=== PATIENT | male | born 1995 | race Two or more races ===

== ENCOUNTER 2017-04-27 10:08 | Emergency (ER) | payer OTHER ==
[2017-04-27 10:13] VITALS: BP 101/79; PULSE 115; TEMP 98.3; BMI 21.4
--- NOTE | 2017-04-27 11:06 | PDOC ---
History of Present Illness - General Chief Complaint: Cold Symptoms Stated Complaint: CHEST PAIN Time Seen by Provider: 04/27/17 10:35 History Source: Patient Exam Limitations: No Limitations - History of Present Illness Initial Comments: 04/27/17 10:55 Patient is a [21 y/o male, denies any significant medical history currently on no medication presents for cough, stuffy nose, circular pruritic rash to right inner thigh. Denies any urinary complaints, denies any penile discharge, denies fever, reports chest pain with coughing 2 days ago which has resolved. Cough is nonproductive.] Past Medical History: [Denies]. Allergies: No known allergies Medications: [Denies] Family History: Non-contributory Social History: Denies smoking, alcohol use, or IVDU Review of Systems GENERAL/CONSTITUTIONAL: [No fever or chills. No weakness. No weight change.] HEAD, EYES, EARS, NOSE AND THROAT: [No change in vision. No ear pain or discharge. No sore throat. ] CARDIOVASCULAR: [No chest pain or shortness of breath.] RESPIRATORY: [No cough, wheezing, or hemoptysis.] GASTROINTESTINAL: [No nausea, vomiting, diarrhea or constipation. No rectal bleeding.] GENITOURINARY: [No dysuria, frequency, or change in urination.] MUSCULOSKELETAL: [No joint or muscle swelling or pain. No neck or back pain.] SKIN AND BREASTS: [No rash or easy bruising.] NEUROLOGIC: [No headache, vertigo, loss of consciousness, or loss of sensation.] PSYCHIATRIC: [No depression or anxiety.] ENDOCRINE: [No increased thirst. No abnormal weight change.] HEMATOLOGIC/LYMPHATIC: [No anemia, easy bleeding, or history of blood clots.] ALLERGIC/IMMUNOLOGIC: [No hives or skin allergy. No latex allergy.] Physical Exam: GENERAL: [The patient is awake, alert, and fully oriented, in no acute distress. ] EYES: [Pupils equal, round and reactive to light, extraocular movements intact, sclera anicteric, conjunctiva clear.] ENT: [Ears normal, nares patent, oropharynx clear without exudates. Moist mucous membranes. No uvula deviation] NECK: [Normal range of motion, supple without lymphadenopathy, JVD, or masses.] LUNGS: [Breath sounds equal, clear to auscultation bilaterally. No wheezes, and no crackles.] HEART: [Regular rate and rhythm, normal S1 and S2 without murmur, rub or gallop. ] ABDOMEN: [Soft, nontender, normoactive bowel sounds. No guarding, no rebound. No masses. No bruising or abrasions] MUSCULOSKELETAL: [Normal range of motion, no edema. No clubbing or cyanosis. No cords, erythema, or tenderness. No CVA Tenderness with fist.] NEUROLOGICAL: [Cranial nerves II through XII grossly intact. Normal speech, normal gait.] SKIN: Circular well-defined erythematous rash, pruritic to right inner thigh 2 measuring approximately 2 cm in width each lesion 04/27/17 11:18 Past History - Past Medical History Allergies/Adverse Reactions: Allergies Allergy/AdvReac Type Severity Reaction Status Date / Time No Known Allergies Allergy Verified 04/27/17 10:10 Home Medications: Ambulatory Orders Meclizine HCl [Antivert -] 12.5 mg PO TID PRN #60 tablet 11/18/15 Buspirone HCl [Buspar -] 10 mg PO BID #60 tablet 11/30/15 Clotrimazole 30 gm TP BID #1 cream..g. 04/27/17 Anemia: No Asthma: No Cancer: No Cardiac Disorders: No CVA: No COPD: No CHF: No Dementia: No Diabetes: No GI Disorders: No Disorders: No HTN: No Hypercholesterolemia: No Kidney Stones: No Seizures: Yes (at age 14 once,) Thyroid Disease: No - Surgical History Abdominal Surgery: No Appendectomy: No Cardiac Surgery: No Cholecystectomy: No Lung Surgery: No Neurologic Surgery: No Orthopedic Surgery: No - Reproductive History Testicular Surgery: No - Immunization History Immunization Up to Date: Yes - Suicide/Smoking/Psychosocial Hx Smoking Status: No Smoking History: Current every day smoker Have you smoked in the past 12 months: Yes Number of Cigarettes Smoked Daily: 10 Cigars Per Day: 0 Information on smoking cessation initiated: Yes 'Breaking Loose' booklet given: 11/09/15 Hx Alcohol Use: No Drug/Substance Use Hx: Yes Substance Use Type: Alcohol, Heroin, Marijuana, Tranquilizers Hx Substance Use Treatment: Yes (several detox/rehab. tx [facility], [facility], [facility] outpatient ) *Physical Exam - Vital Signs Last Vital Signs Temp Pulse Resp BP Pulse Ox 98.3 F 115 H 20 101/79 98 04/27/17 10:10 04/27/17 10:10 04/27/17 10:10 04/27/17 10:10 04/27/17 10:10 Medical Decision Making - Medical Decision Making 04/27/17 11:19 A/P: Patient with, cold-like symptoms and rash consistent with ringworm will give antifungal, follow-up with dermatology. Patient's lungs are clear, physical examination is benign, patient is afebrile. *DC/Admit/Observation/Transfer Diagnosis at time of Disposition: Common cold, Ringworm - Discharge Dispostion Disposition: HOME Condition at time of disposition: Stable Admit: No - Prescriptions Prescriptions: Clotrimazole 30 gm TP BID #1 cream..g. - Referrals Referrals: [facility] [Non Staff, Medical] - - Patient Instructions Printed Discharge Instructions: DI for Ringworm Additional Instructions: Recommend follow up with dermatology. If fever, increased cough or other concerns return to the ER. - Post Discharge Activity Forms/Work/School Notes: Back to Work
== END 2017-04-27 11:10 | disposition home or self-care (01) ==
LOC: JERFT 10:08
DX: J00 Acute nasopharyngitis [common cold] (principal); B35.9 Dermatophytosis, unspecified; F17.210 Nicotine dependence, cigarettes, uncomplicated
CPT/HCPCS: 99281-25

== ENCOUNTER 2018-03-30 13:02 | Day surgery (SDC) | payer OTHER ==
[2018-03-30 14:04] VITALS: BMI 19.1
[2018-03-30 16:06] VITALS: TEMP 98.4
[2018-03-30 16:39] VITALS: BP 107/58; PULSE 54
--- NOTE | 2018-04-03 15:18 | PATH ---
Surgical Pathology Report Patient Name: [facility]. Rec. #: [id number] /Age/Gender: 1995 (Age: 22) / M Account: [id number] Location: U-ENDOSCOPY Taken: 03/30/2018 Received: 04/02/2018 Reported: 04/03/2018 Physicians: Hernan Palacios D.O. Specimen(s) Received A: BX DUODENUM B: BX PYLORUS C: BX ANTRUM AND BODY Clinical History Abdominal pain Postoperative diagnosis: Gastritis Final Diagnosis A. DUODENUM, BIOPSY: DUODENAL MUCOSA WITH MILD ACUTE AND CHRONIC DUODENITIS. B. PYLORUS, BIOPSY: GASTRIC MUCOSA WITH MILD CHRONIC GASTRITIS. IMMUNOHISTOCHEMICAL STAIN FOR H. PYLORI IS NEGATIVE. C. STOMACH, ANTRUM AND BODY, BIOPSY: GASTRIC ANTRAL AND BODY MUCOSA WITH MILD CHRONIC GASTRITIS. IMMUNOHISTOCHEMICAL STAIN FOR H. PYLORI IS NEGATIVE. Electronically Signed Jolynn Machado M.D. Gross Description A. Received in formalin, labeled "duodenum" are 3 alt[place]ano, irregular portions of soft tissue ranging from 0.2-0.4 cm. in greatest dimension. The specimens are submitted in toto in one cassette. B. Received in formalin, labeled "pylorus" is a altamirano, irregular portion of soft tissue measuring 0.5 cm. in greatest dimension. The specimen is submitted in toto in one cassette. C. Received in formalin, labeled "antrum and body" are 2 altamirano, irregular portions of soft tissue averaging 0.4 cm. in greatest dimension. The specimens are submitted in toto in one cassette. 04/02/2018 [facility]04/02/2018
== END 2018-03-30 16:39 | disposition home or self-care (01) ==
LOC: JASU-ENDO 13:02
PROVIDERS: ATTEND Internal Medicine Gastroenterology
PROC: 0DB68ZX Excision of Stomach, Via Natural or Artificial Opening Endoscopic, Diagnostic (ICD-10-PCS; principal; 2018-03-30 14:15)
DX: K29.70 Gastritis, unspecified, without bleeding (principal)
CPT/HCPCS: 88305-TC; 88342-TC

== ENCOUNTER 2019-01-29 14:32 | Inpatient (IN) | payer OTHER ==
[2019-01-29 14:40] VITALS: BMI 21.5
--- NOTE | 2019-01-29 14:41 | PDOC ---
Rapid Medical Evaluation Chief Complaint: Pain Time Seen by Provider: 01/29/19 14:35 Medical Evaluation: Allergies Allergy/AdvReac Type Severity Reaction Status Date / Time No Known Allergies Allergy Verified 01/05/18 12:58 01/29/19 14:37 I have performed a brief in-person evaluation of this patient. The patient presents with a chief complaint of: h/o GERD and substance abuse present with complains of diarrhea, abdominal pains, nausea and vomiting. Denies alcohol use but report marijuana and h/o benzo abuse. Denies fever, chills Pertinent physical exam findings: A&O x 3 in NAD I have ordered the following: cbc, cmp, lipase The patient will proceed to the ED for further evaluation. Discharge Disposition - Diagnosis Gastroenteritis - Discharge Dispostion Condition at time of disposition: Stable - Referrals - Patient Instructions - Post Discharge Activity
--- NOTE | 2019-01-29 14:46 | PDOC ---
History of Present Illness <Curry Wyatt - Last Filed: 01/29/19 15:42> - General History Source: Patient - History of Present Illness Timing/Duration: reports: resolved prior to arrival <Henry Cardoza - Last Filed: 01/29/19 17:35> - General Chief Complaint: Pain Stated Complaint: ABN PAIN Time Seen by Provider: 01/29/19 14:35 Past History <Curry Wyatt - Last Filed: 01/29/19 15:42> - Past Medical History Anemia: No Asthma: No Cancer: No Cardiac Disorders: No CVA: No COPD: No CHF: No DVT: No Dementia: No Diabetes: No GI Disorders: No Disorders: No HTN: No Hypercholesterolemia: No Kidney Stones: No Seizures: Yes (withdrawl from drug at age 14 once,) Thyroid Disease: No - Surgical History Abdominal Surgery: No Appendectomy: No Cardiac Surgery: No Cholecystectomy: No Lung Surgery: No Neurologic Surgery: No Orthopedic Surgery: No - Reproductive History Testicular Surgery: No - Immunization History Immunization Up to Date: Yes - Psycho Social/Smoking Cessation Hx Smoking Status: No Smoking History: Current every day smoker Have you smoked in the past 12 months: Yes Number of Cigarettes Smoked Daily: 6 Cigars Per Day: 0 Information on smoking cessation initiated: No 'Breaking Loose' booklet given: 03/30/18 Hx Alcohol Use: No Drug/Substance Use Hx: No Substance Use Type: Alcohol, Heroin, Marijuana, Tranquilizers Hx Substance Use Treatment: Yes (several detox/rehab. tx [facility], [facility], [facility] outpatient ) <Henry Cardoza - Last Filed: 01/29/19 17:35> - Past Medical History Allergies/Adverse Reactions: Allergies Allergy/AdvReac Type Severity Reaction Status Date / Time No Known Allergies Allergy Verified 01/29/19 14:40 Home Medications: Ambulatory Orders Clonazepam 1 mg PO DAILY 03/30/18 Medical Marijuana IH PRN 03/30/18 Methadone [Dolophine -] 5 mg PO DAILY 03/30/18 Omeprazole 40 mg PO DAILY #1 capsule. 03/30/18 Abd/GI Specific PMHX - Complaint Specific PMHX Hepatitis: No Pancreatitis: No <Henry Cardoza - Last Filed: 01/29/19 17:35> Review of Systems - Review of Systems Constitutional: No: Chills, Fever Respiratory: No: Cough, Shortness of Breath Cardiac (ROS): Yes: Chest Pain. No: Lightheadedness, Palpitations, Syncope ABD/GI: Yes: Diarrhea, Nausea, Vomiting, Abdominal cramping. No: Blood Streaked Bowels, Constipated, Rectal Bleeding, Tarry Stools : No: Burning, Dysuria, Discharge, Flank Pain, Hematuria <Henry Cardoza - Last Filed: 01/29/19 17:35> *Physical Exam - Vital Signs Last Vital Signs Temp Pulse Resp BP Pulse Ox 98.0 F 118 H 18 135/72 100 01/29/19 14:35 01/29/19 14:35 01/29/19 14:35 01/29/19 14:35 01/29/19 14:35 <Curry Wyatt - Last Filed: 01/29/19 15:42> - Vital Signs Last Vital Signs Temp Pulse Resp BP Pulse Ox 98.0 F 118 H 18 135/72 100 01/29/19 14:35 01/29/19 14:35 01/29/19 14:35 01/29/19 14:35 01/29/19 14:35 - Physical Exam General Appearance: Yes: Appropriately Dressed. No: Apparent Distress HEENT: positive: Normal Voice Neck: positive: Supple Respiratory/Chest: positive: Lungs Clear, Normal Breath Sounds. negative: Respiratory Distress Cardiovascular: positive: Regular Rate, S1, S2 Gastrointestinal/Abdominal: positive: Normal Bowel Sounds, Soft. negative: Tender, Pulsatile Mass, Distended, Guarding, Rebound Musculoskeletal: negative: CVA Tenderness Integumentary: positive: Dry, Warm Neurologic: positive: Fully Oriented, Alert, Normal Mood/Affect <Henyr Cardoza - Last Filed: 01/29/19 17:35> Heart Score/ECG Review #1 ECG reviewed & interpreted by me at: 15:07 General ECG Interpretation: Sinus Rhythm, Normal Rate (82), Normal Intervals ( qtc 457, IRBBB qrs 96), No acute ischemic changes <Curry Wyatt - Last Filed: 01/29/19 15:42> ED Treatment Course - LABORATORY CBC & Chemistry Diagram: 01/29/19 14:10 01/29/19 14:10 - ADDITIONAL ORDERS Additional order review: Laboratory Results 01/29/19 14:10 Urine Color Yellow Urine Appearance Clear Urine pH 6.0 Ur Specific [place] 1.008 L Urine Protein Negative Urine Glucose (UA) Negative Urine Ketones Negative Urine Blood Negative Urine Nitrite Negative Urine Bilirubin Negative Urine Urobilinogen 0.2 Ur Leukocyte Esterase Negative 01/29/19 14:10 RBC 4.57 MCV 92.1 MCHC 33.8 RDW 12.7 MPV 7.3 L Neutrophils % 79.9 D Lymphocytes % 14.7 D Monocytes % 3.7 L Eosinophils % 1.3 Basophils % 0.4 <Curry Wyatt - Last Filed: 01/29/19 15:42> - LABORATORY CBC & Chemistry Diagram: 01/29/19 14:10 01/29/19 14:10 <Henry Cardoza - Last Filed: 01/29/19 17:35> Medical Decision Making - Medical Decision Making 01/29/19 14:45 23-year-old male history of polysubstance abuse, on methadone, s/p discharge several days ago after a 6-month inpatient rehab stay at [facility], here with multiple complaints. Patient states for the past 3 weeks has had intermittent chest pain/upper abd pain that comes on once a day and resolves with no exacerbating symptoms. Also reports several episodes of nausea, vomiting, diarrhea that has since resolved. States abd pain, in general, has since improved and currently asymptomatic. No SOB or diaphoresis. States since his discharge from long-term rehab several days ago, has only continued to do marijuana see exam Upper abd pain w/ n/v/d x 3 weeks Since resolved Asx currently S/p recent dc from lengthy in-pt rehab stay for polysubstance abuse Only reports continued cannibus now Tachy to 118 w/ clear chest/lungs and benign abd on exam -ekg/cxr/labs -anticipate dc home 01/29/19 16:28 Lipase over 1000! On reassessment, patient denies excessive alcohol use and states last alcohol intake was over 2 months ago. No history of gallstones. Pancreatitis possibly drug-induced as cannabis known to cause condition. Will get ultrasound and triglyceride level to exclude other cause. Of note U tox positive for cocaine benzo and marijuana. At present patient remains asymptomatic with benign abdomen. Per discussion with Dr. Wyatt, patient should be admitted 01/29/19 17:21 Pt informed of lab results. I explained to patient that based on lab work, his pancreas appears inflamed and that assuming there is no gallstones on his ultrasound and that triglyceride levels are normal, that condition is possibly due to his cannabis use. I explained to patient that we would like to admit him to rest his pancreas and give him IV fluids. Patient states he does not want to be admitted but will give it further thought and at least wait for his ultrasound report to come back. 01/29/19 17:31 Ultrasound neg for gallstones but shows borderline hepatosplenomegaly and fatty liver. Of note, triglyceride and alcohol level wnl. Unable to locate patient in ED. ER staff was told by another patient that patient was seen walking out of ER. No IV was in place <Henry Cardoza - Last Filed: 01/29/19 17:35> Discharge <Curry Wyatt - Last Filed: 01/29/19 15:42> - Discharge Information Problems reviewed: Yes <Henry Cardoza - Last Filed: 01/29/19 17:35> - Discharge Information Clinical Impression/Diagnosis: Abdominal pain Qualifiers: Abdominal location: upper abdomen, unspecified Qualified Code(s): R10.10 - Upper abdominal pain, unspecified Condition: Fair Disposition: ELOPED
[2019-01-29 15:12] LABS: BASO % 0.4 % (0-2.0); EOS % 1.3 % (0-4.5); HEMOGLOBIN 14.2 GM/dL (11.7-16.9); LYMPH % 14.7 % (8-40); MCH 31.1 pg (25.7-33.7); MCHC 33.8 g/dl (32.0-35.9); MEAN CELL VOLUME 92.1 fl (80-96); MEAN PLT VOLUME 7.3 fl (7.5-11.1); MONO % 3.7 % (3.8-10.2); NEUT % 79.9 % (42.8-82.8); PLATELET COUNT 188 K/MM3 (134-434); RBC 4.57 M/mm3 (4.00-5.60); RDW 12.7 % (11.9-15.9); WHITE BLOOD COUNT 7.5 K/mm3 (4.0-10.0)
[2019-01-29 15:34] LABS: URINE APPEARANCE CLEAR; URINE BILIRUBIN NEGATIVE (NEGATIVE); URINE COLOR YELLOW; URINE GLUCOSE (UA) NEGATIVE (NEGATIVE); URINE KETONE NEGATIVE (NEGATIVE); URINE LEUK ESTERASE NEGATIVE (NEGATIVE); URINE NITRITE NEGATIVE (NEGATIVE); URINE PROTEIN NEGATIVE (NEGATIVE); URINE UROBILINOGEN 0.2 mg/dL (0.2-1.0)
[2019-01-29 15:46] LABS: ALBUMIN 3.6 g/dl (3.4-5.0); ALK PHOS 67 U/L (45-117); ANION GAP 6 MMOL/L (8-16); BILIRUBIN,TOTAL 0.2 mg/dL (0.2-1); BLOOD UREA NITROGEN 9.3 mg/dL (7-18); CALCIUM 8.7 mg/dL (8.5-10.1); CHLORIDE 105 mmol/L (98-107); CO2 28 mmol/L (21-32); CREATININE 0.9 mg/dL (0.55-1.3); GLUCOSE,RANDOM 79 mg/dL (74-106); LIPASE 1006 U/L (73-393); POTASSIUM 4.5 mmol/L (3.5-5.1); SGOT/AST 16 U/L (15-37); SGPT/ALT 26 U/L (13-61); SODIUM 139 mmol/L (136-145); TOT PROT 7.3 g/dl (6.4-8.2)
[2019-01-29 16:03] LABS: OPIATES, URI NEGATIVE ng/ml (CUTOFF=300); PHENCYCLIDINE,URINE NEGATIVE ng/ml (CUTOFF=25); URINE AMPHETAMINES NEGATIVE ng/ml (CUTOFF=500); URINE BARBITURATES NEGATIVE ng/ml (CUTOFF=200)
[2019-01-29 16:22] LABS: COCAINE, UR POSITIVE ng/ml (CUTOFF=300); METHADONE, UR POSITIVE ng/ml (CUTOFF=300); URINE BENZODIAZEPINES POSITIVE ng/ml (CUTOFF=200)
[2019-01-29 17:14] LABS: TRIGLYCERIDES 71 mg/dL (0-150)
[2019-01-29] MEDS ORDERED: SODIUM CHLORIDE 1,000 ML IV STA (18:17)
--- NOTE | 2019-01-29 18:19 | PDOC ---
*Physical Exam - Vital Signs Last Vital Signs Temp Pulse Resp BP Pulse Ox 98.0 F 102 H 15 133/69 99 01/29/19 14:35 01/29/19 17:00 01/29/19 17:00 01/29/19 17:00 01/29/19 17:00 - Physical Exam General Appearance: Yes: Appropriately Dressed. No: Apparent Distress HEENT: positive: Normal Voice Neck: positive: Supple Respiratory/Chest: positive: Lungs Clear, Normal Breath Sounds. negative: Respiratory Distress Cardiovascular: positive: Regular Rate, S1, S2 Gastrointestinal/Abdominal: positive: Soft. negative: Tender Musculoskeletal: negative: CVA Tenderness Integumentary: positive: Dry, Warm Neurologic: positive: Fully Oriented, Alert, Normal Mood/Affect ED Treatment Course - LABORATORY CBC & Chemistry Diagram: 01/30/19 06:00 01/30/19 06:00 - ADDITIONAL ORDERS Additional order review: Laboratory Results 01/29/19 01/29/19 01/29/19 14:10 14:10 14:10 Sodium 139 Potassium 4.5 Chloride 105 Carbon Dioxide 28 Anion Gap 6 L BUN 9.3 Creatinine 0.9 Est GFR (CKD-EPI)AfAm 139.04 Est GFR (CKD-EPI)NonAf 119.96 Random Glucose 79 Calcium 8.7 Total Bilirubin 0.2 AST 16 ALT 26 Alkaline Phosphatase 67 Creatine Kinase 93 Troponin I < 0.02 Total Protein 7.3 Albumin 3.6 Triglycerides 71 Lipase 1006 H Urine Color Yellow Urine Appearance Clear Urine pH 6.0 Ur Specific [place] 1.008 L Urine Protein Negative Urine Glucose (UA) Negative Urine Ketones Negative Urine Blood Negative Urine Nitrite Negative Urine Bilirubin Negative Urine Urobilinogen 0.2 Ur Leukocyte Esterase Negative Opiates Screen Negative Methadone Screen Positive A* Barbiturate Screen Negative Phencyclidine Screen Negative Ur Amphetamines Screen Negative MDMA (Ecstasy) Screen Negative Benzodiazepines Screen Positive A* Cocaine Screen Positive A* U Marijuana (THC) Screen Positive A* Alcohol, Quantitative < 3 01/29/19 14:10 RBC 4.57 MCV 92.1 MCHC 33.8 RDW 12.7 MPV 7.3 L Neutrophils % 79.9 D Lymphocytes % 14.7 D Monocytes % 3.7 L Eosinophils % 1.3 Basophils % 0.4 - RADIOLOGY Radiology Studies Ordered: Category Date Time Status CHEST PA & LAT [RAD] Stat Radiology 01/29/19 14:49 Completed ABDOMEN US -LIMITED [US] Stat Ultrasound 01/29/19 15:52 Completed Medical Decision Making - Medical Decision Making 01/29/19 18:16 Patient reappeared in ED now and told staff that he went outside to smoke a cigarette and then went home to get clothes and belongings and now wants to be admitted. Pt well alex with strong scent of marijuana on his person. ER nurse and charge nurse made aware. Will continue evaluation at this time and arrange admission 01/29/19 18:29 Case discussed with admitting team who is requesting CT to rule out necrosis. States after CT, ER to contact team to admit 01/29/19 19:00 Pt signed out to night ALEX, pending CT and admission Discharge - Discharge Information Problems reviewed: Yes Clinical Impression/Diagnosis: Abdominal pain, Pancreatitis, Cannabis dependence, Polysubstance abuse Condition: Improved - Admission Yes - Follow up/Referral - Patient Discharge Instructions - Post Discharge Activity
[2019-01-29] MEDS ORDERED: ACETAMINOPHEN 1000 MG/100 ML VIAL (NON FORMULARY) IVPB ONE (18:52)
--- NOTE | 2019-01-29 19:11 | PN ---
Teaching Attending Note Name of Resident: Denny Toribio ATTENDING PHYSICIAN STATEMENT I saw and evaluated the patient. I reviewed the resident's note and discussed the case with the resident. I agree with the resident's findings and plan as documented. SUBJECTIVE: Patient is a 23 year old man with PMH of Tobacco use, Anxiety and Polysubstance abuse (on methadone), discharged several days ago after a 6-month inpatient rehab stay at [facility], presenting with 3 weeks of intermittent chest pain/ upper abdominal pain. Pain comes on once a day and resolves with no exacerbating symptoms. Also reports several episodes of nausea, vomiting, diarrhea that has since resolved. States abdominal pain, in general, has since improved and currently asymptomatic. Denies SOB, headache, fever, chills or diaphoresis. States since his discharge from long-term rehab several days ago, he has only continued to do marijuana. Denies alcohol use. No sick contacts or recent travel. OBJECTIVE: Alert Vital Signs Period Temp Pulse Resp BP Sys/Nuno Pulse Ox Last 24 Hr 98.0 F-98.2 F 102-118 15-20 102-135/58-72 98-100 HEENT: No Jaundice, eye redness or discharge, PERRLA, EOMI. Normocephalic, atraumatic. External ears are normal and hearing is grossly intact. No nasal discharge. Neck: Supple, nontender. No palpable adenopathy or thyromegaly. No JVD Chest: Good effort. Clear to auscultation and percussion. Heart: Regular. No S3, rub or murmur Abdomen: Not distended, soft, nontender and no HSM. No rebound or guarding. Normal bowel sounds. Ext: Peripheral pulses intact. No leg edema. Skin: Warm and dry. No petechiae, rash or ecchymosis. Neuro: Alert. Oriented x3. CN 2-12 grossly intact. Sensation grossly intact in all four extremities and DTR are symmetric. Psych: Appropriate mood and affect. Good insight. Home Medications Medication Instructions Recorded Methadone [Dolophine -] 140 mg PO DAILY 03/30/18 Buspirone HCl [Buspar -] 10 mg PO DAILY 01/29/19 Abnormal Lab Results 01/29/19 01/29/19 01/29/19 14:10 14:10 14:10 MPV 7.3 L Monocytes % 3.7 L Anion Gap 6 L Lipase 1006 H Ur Specific [place] Methadone Screen Positive A* Benzodiazepines Screen Positive A* Cocaine Screen Positive A* U Marijuana (THC) Screen Positive A* 01/29/19 14:10 MPV Monocytes % Anion Gap Lipase Ur Specific [place] 1.008 L Methadone Screen Benzodiazepines Screen Cocaine Screen U Marijuana (THC) Screen ASSESSMENT AND PLAN: 1. Pancreatitis - Most likely drug induced. Urine toxicology revealed cocaine, benzodiazepines, marijuana and methadone. Ultrasound was negative for gallstones , showed borderline hepatosplenomegaly and fatty liver but no pancreatic pathology. No evidence of pancreatitis on CT abdomen. Being treated with IV LR at 200 ml/hour and will use tylenol for pain control. Now painfree and eating crackers and walking around in the ER. Will monitor closely for drug withdrawal and do neurochecks. Implement seizure, fall and aspiration precautions. Monitor and replete electrolytes (Ca,Mg,K,P). EKG is pending. Counseled patient about abstaining from illicit drug use. Will consult legal specialist and refer to drug detox upon discharge. 2. Tobacco Use Counseled on risks associated with tobacco use. We will provide patient all the necessary assistance to facilitate smoking cessation and prescribe Nicotine patch. 3. DVT prophylaxis - Lovenox 40 mg SQ q 24 hours. 4. Advance directives - Full code
--- NOTE | 2019-01-29 19:47 | HP ---
CHIEF COMPLAINT: abd pain PCP: denies HISTORY OF PRESENT ILLNESS: This is a 23 y/o M with a polysubstance abuse hx s/ p d/c from detox at [facility] for benzos, cocaine, and heroin abuse who was brought in by his grandma after pt noticed one episoder of black stool and epigastric pain/chest pain this afternoon. Pt admits to 1/2 gram of cocaine injected during this episode and made the symptoms worse, as it was the largest amount he had ever taken at one time. Pt had experienced the epigastric pain for weeks but the cocaine use exacerbated it to a point where he needed medical attention. Pt was nauseous, lightheaded and had cp, dizzy during the cocaine use but denied it prior or once the effects wore off. Pt denied any cp, sob, fever, chills, sick contacts, bowel/bladder complaints, epigastric pain upon my encounter. He has mostly been eating crackers with butter because of the pain he had been experiencing. He reports the IV tylenol given in ED has improved his pain to a 0/10. Denies a hx of gall stones, ETOH, hyperlipidemia in his family, recent scorpion bite, trauma, medical procedures. ER course was notable for: (1)1g tylenol given, IV LR at 200cc/hr, UA tox + benzos, methadone, cocaine, marijuana (2)Lipase- 1001, CT abd pelvis w/o contrast- negative for acute pathology (3) US- hepatosplenomegaly with mild diffuse fatty liver Recent Travel: denies Social History: Smokin days/day X 7 yrs Alcohol: denies past or present Drugs: 1/2 gram of IV cocaine, (not prescribed at this time) klonopin 2mg daily , (not prescribed at this time) buspar 10mg BID, methadone 140 daily (not confirmed yet) Allergies No Known Allergies Allergy (Verified 01/29/19 14:40) HOME MEDICATIONS: Home Medications Medication Instructions Recorded Methadone [Dolophine -] 140 mg PO DAILY 03/30/18 Buspirone HCl [Buspar -] 10 mg PO DAILY 01/29/19 REVIEW OF SYSTEMS negative except in HPI PHYSICAL EXAMINATION Vital Signs - 24 hr 01/29/19 01/29/19 01/29/19 14:35 17:00 18:28 Temperature 98.0 F 98.2 F Pulse Rate 118 H Pulse Rate [ 102 H 112 H Right Radial] Respiratory 18 15 20 Rate Blood Pressure 135/72 Blood Pressure 133/69 102/58 L [Left Arm] O2 Sat by Pulse 100 99 98 Oximetry (%) GENERAL: Awake, alert, and fully oriented, in no acute distress. Thin appearing male. LUNGS: Breath sounds equal, clear to auscultation bilaterally. No wheezes, and no crackles. No accessory muscle use. HEART: Regular rate and rhythm, normal S1 and S2 without murmur, rub or gallop. ABDOMEN: Soft, nontender, not distended, normoactive bowel sounds, no guarding, no rebound, no masses. No hepatomegaly or splenomegaly. LOWER EXTREMITIES: 2+ pulses, warm, well-perfused. No calf tenderness. No peripheral edema. NEUROLOGICAL: Cranial nerves II-XII intact. Normal speech. Normal gait. PSYCHIATRIC: Cooperative. Good eye contact. Appropriate mood and affect. SKIN: Warm, dry, normal turgor, no rashes or lesions noted. Laboratory Results - last 24 hr 01/29/19 01/29/19 01/29/19 14:10 14:10 14:10 WBC 7.5 RBC 4.57 Hgb 14.2 Hct 42.0 MCV 92.1 MCH 31.1 MCHC 33.8 RDW 12.7 Plt Count 188 MPV 7.3 L Absolute Neuts (auto) 6.0 Neutrophils % 79.9 D Lymphocytes % 14.7 D Monocytes % 3.7 L Eosinophils % 1.3 Basophils % 0.4 Nucleated RBC % 0 Sodium 139 Potassium 4.5 Chloride 105 Carbon Dioxide 28 Anion Gap 6 L BUN 9.3 Creatinine 0.9 Est GFR (CKD-EPI)AfAm 139.04 Est GFR (CKD-EPI)NonAf 119.96 Random Glucose 79 Calcium 8.7 Total Bilirubin 0.2 AST 16 ALT 26 Alkaline Phosphatase 67 Creatine Kinase 93 Troponin I < 0.02 Total Protein 7.3 Albumin 3.6 Triglycerides 71 Lipase 1006 H Urine Color Urine Appearance Urine pH Ur Specific [place] Urine Protein Urine Glucose (UA) Urine Ketones Urine Blood Urine Nitrite Urine Bilirubin Urine Urobilinogen Ur Leukocyte Esterase Opiates Screen Negative Methadone Screen Positive A* Barbiturate Screen Negative Phencyclidine Screen Negative Ur Amphetamines Screen Negative MDMA (Ecstasy) Screen Negative Benzodiazepines Screen Positive A* Cocaine Screen Positive A* U Marijuana (THC) Screen Positive A* Alcohol, Quantitative < 3 01/29/19 14:10 WBC RBC Hgb Hct MCV MCH MCHC RDW Plt Count MPV Absolute Neuts (auto) Neutrophils % Lymphocytes % Monocytes % Eosinophils % Basophils % Nucleated RBC % Sodium Potassium Chloride Carbon Dioxide Anion Gap BUN Creatinine Est GFR (CKD-EPI)AfAm Est GFR (CKD-EPI)NonAf Random Glucose Calcium Total Bilirubin AST ALT Alkaline Phosphatase Creatine Kinase Troponin I Total Protein Albumin Triglycerides Lipase Urine Color Yellow Urine Appearance Clear Urine pH 6.0 Ur Specific [place] 1.008 L Urine Protein Negative Urine Glucose (UA) Negative Urine Ketones Negative Urine Blood Negative Urine Nitrite Negative Urine Bilirubin Negative Urine Urobilinogen 0.2 Ur Leukocyte Esterase Negative Opiates Screen Methadone Screen Barbiturate Screen Phencyclidine Screen Ur Amphetamines Screen MDMA (Ecstasy) Screen Benzodiazepines Screen Cocaine Screen U Marijuana (THC) Screen Alcohol, Quantitative ASSESSMENT/PLAN: This is a 23 y/o M with a polysubstance abuse hx s/p d/c from detox at [facility] for benzos, cocaine, and heroin abuse who was brought in by his grandma after pt noticed one episoder of black stool and epigastric pain/ chest pain this afternoon. Pt admits to 1/2 gram of cocaine injected during this episode and made the symptoms worse, as it was the largest amount he had ever taken at one time. #Elevated lipase r/o pancreatitis - likely 2/2 polysubstance abuse. - upon encounter pt had no epigastric pain and CT negative so would call it - CT abd done without contrast which is suboptimal but negative for acute pathology -US negative for gall stones, but hepatosplenomegaly and fatty infiltration of liver present. - Lipase 1001, epigastric pain - IV LR @200cc/hr for first 24 hrs - pt not nauseous or in any pain so diet has been advanced - no need for abx at this time given no clinical or imaging findings suggestive of necrosis. - Tylenol PO 650mg Q6h Prn for pain #Melena - one bout of ? melena - Dr. Chauhan in 04/10 did an EGD which was negative at the time he had melena. - unclear origin at this time - will monitor for signs of bleeding - stool guiac ordered - not anemic at this time, improved Hb from last admission. - no need for Fe studies/anemia w/u at this time unless it continues or stool guiac positive - denies use of Fe pills #Polysubstance abuse - s/p discharge from detox facility - confirm home methadone dose - no signs of withdrawal - UA tox positive for benzos, cocaine, marijuana - counseled pt on harmful effects of the drugs and recommended discontinuation - Dr. Olmos consulted for detox after d/c - aspiration, fall, seizure precautions #Malnutrition - dietary consult - calorie count - ensure for increased caloric intake DVT ppx: Lovenox 40MG SQ daily Visit type - Emergency Visit Emergency Visit: Yes ED Registration Date: 01/29/19 Care time: The patient presented to the Emergency Department on the above date and was hospitalized for further evaluation of their emergent condition. - New Patient This patient is new to me today: Yes Date on this admission: 01/30/19 - Critical Care Critical Care patient: No ATTENDING PHYSICIAN STATEMENT I saw and evaluated the patient. I reviewed the resident's note and discussed the case with the resident. I agree with the resident's findings and plan as documented. SUBJECTIVE: OBJECTIVE: ASSESSMENT AND PLAN:
[2019-01-29] MEDS ORDERED: ACETAMINOPHEN INJECTION 100 ML IVPB ONE (20:14)
--- NOTE | 2019-01-29 20:16 | PDOC ---
*Physical Exam - Vital Signs Last Vital Signs Temp Pulse Resp BP Pulse Ox 98.2 F 112 H 20 102/58 L 98 01/29/19 18:28 01/29/19 18:28 01/29/19 18:28 01/29/19 18:28 01/29/19 18:28 ED Treatment Course - LABORATORY CBC & Chemistry Diagram: 01/29/19 14:10 01/29/19 14:10 - ADDITIONAL ORDERS Additional order review: Laboratory Results 01/29/19 01/29/19 01/29/19 14:10 14:10 14:10 Sodium 139 Potassium 4.5 Chloride 105 Carbon Dioxide 28 Anion Gap 6 L BUN 9.3 Creatinine 0.9 Est GFR (CKD-EPI)AfAm 139.04 Est GFR (CKD-EPI)NonAf 119.96 Random Glucose 79 Calcium 8.7 Total Bilirubin 0.2 AST 16 ALT 26 Alkaline Phosphatase 67 Creatine Kinase 93 Troponin I < 0.02 Total Protein 7.3 Albumin 3.6 Triglycerides 71 Lipase 1006 H Urine Color Yellow Urine Appearance Clear Urine pH 6.0 Ur Specific [place] 1.008 L Urine Protein Negative Urine Glucose (UA) Negative Urine Ketones Negative Urine Blood Negative Urine Nitrite Negative Urine Bilirubin Negative Urine Urobilinogen 0.2 Ur Leukocyte Esterase Negative Opiates Screen Negative Methadone Screen Positive A* Barbiturate Screen Negative Phencyclidine Screen Negative Ur Amphetamines Screen Negative MDMA (Ecstasy) Screen Negative Benzodiazepines Screen Positive A* Cocaine Screen Positive A* U Marijuana (THC) Screen Positive A* Alcohol, Quantitative < 3 01/29/19 14:10 RBC 4.57 MCV 92.1 MCHC 33.8 RDW 12.7 MPV 7.3 L Neutrophils % 79.9 D Lymphocytes % 14.7 D Monocytes % 3.7 L Eosinophils % 1.3 Basophils % 0.4 - Medications Given in the ED: ED Medications Discontinued Medications Generic Name Dose Route Start Last Admin Trade Name Freq PRN Reason Stop Dose Admin Sodium Chloride 1,000 mls @ 1,000 mls/hr 01/29/19 18:17 01/29/19 18:50 Normal Saline - IV 01/29/19 19:16 1,000 mls/hr ASDIR STA Administration Medical Decision Making - Medical Decision Making 01/29/19 20:16 patient signed out to hospitalist team. CTAP negative Discharge - Discharge Information Problems reviewed: Yes Clinical Impression/Diagnosis: Cannabis dependence, Polysubstance abuse Abdominal pain Qualifiers: Abdominal location: upper abdomen, unspecified Qualified Code(s): R10.10 - Upper abdominal pain, unspecified Pancreatitis Qualifiers: Chronicity: acute Pancreatitis type: drug induced Acute pancreatitis complication: unspecified Qualified Code(s): K85.30 - Drug induced acute pancreatitis without necrosis or infection Condition: Fair - Admission Yes - Follow up/Referral - Patient Discharge Instructions - Post Discharge Activity
[2019-01-29] MEDS ORDERED: DEXTROSE 5%-LACTATED RINGERS 1,000 ML IV SCH (20:45)
[2019-01-29] MEDS ORDERED: LACTATED RINGERS SOLUTION 1,000 ML/1,000 ML INFUS.BAG IV SCH (21:45)
[2019-01-30] MEDS ORDERED: ACETAMINOPHEN 325 MG TABLET (FP) PO PRN (03:04)
[2019-01-30 07:35] LABS: HEMATOCRIT 32.1 % (35.4-49); HEMOGLOBIN 11.2 GM/dL (11.7-16.9); MCH 32.1 pg (25.7-33.7); MCHC 34.9 g/dl (32.0-35.9); MEAN CELL VOLUME 91.9 fl (80-96); MEAN PLT VOLUME 8.5 fl (7.5-11.1); PLATELET COUNT 115 K/MM3 (134-434); RBC 3.49 M/mm3 (4.00-5.60); RDW 12.6 % (11.9-15.9); WHITE BLOOD COUNT 3.6 K/mm3 (4.0-10.0)
[2019-01-30 08:16] LABS: BLOOD UREA NITROGEN 12.8 mg/dL (7-18); CALCIUM 8.3 mg/dL (8.5-10.1); CREATININE 0.8 mg/dL (0.55-1.3); MAGNESIUM 2.1 mg/dL (1.8-2.4); PHOSPHOROUS 4.1 mg/dL (2.5-4.9); POTASSIUM 4.1 mmol/L (3.5-5.1)
[2019-01-30] MEDS ORDERED: METHADONE HCL 10 MG TABLET PO SCH (08:59)
[2019-01-30] MEDS ORDERED: ENOXAPARIN NA (PORCINE) 40 MG/0.4 ML DISP.SYRIN SQ SCH (10:00)
--- NOTE | 2019-01-30 10:12 | EKG ---
Test Reason : Blood Pressure : / mmHG Vent. Rate : 055 BPM Atrial Rate : 055 BPM P-R Int : 144 ms QRS Dur : 100 ms QT Int : 438 ms P-R-T Axes : 061 020 040 degrees QTc Int : 419 ms SINUS BRADYCARDIA WITH SINUS ARRHYTHMIA OTHERWISE NORMAL ECG NO PREVIOUS ECGS AVAILABLE Confirmed by LEVAR BAILEY, RITU ([id number]) on 01/30/2019 10:11:49 AM Referred By: Confirmed By:RITU CRISTOBAL MD
--- NOTE | 2019-01-30 10:41 | EKG ---
Test Reason : Blood Pressure : / mmHG Vent. Rate : 082 BPM Atrial Rate : 082 BPM P-R Int : 138 ms QRS Dur : 096 ms QT Int : 392 ms P-R-T Axes : 067 -13 035 degrees QTc Int : 457 ms NORMAL SINUS RHYTHM POSSIBLE LEFT ATRIAL ENLARGEMENT RSR' OR QR PATTERN IN V1 SUGGESTS RIGHT VENTRICULAR CONDUCTION DELAY BORDERLINE ECG NO PREVIOUS ECGS AVAILABLE Confirmed by LEVAR BAILEY, RITU ([id number]) on 01/30/2019 10:41:19 AM Referred By: Confirmed By:RITU CRISTOBAL MD
[2019-01-30] MEDS ORDERED: METHADONE 120 MG, METHADONE 20 MG PO SCH (10:45)
[2019-01-30] MEDS ORDERED: METHADONE HCL 10 MG TABLET ONE (10:47)
[2019-01-30] MEDS ORDERED: METHADONE HCL 40 MG DISPERSABLE TABLET ONE (10:48)
[2019-01-30 14:00] VITALS: BP 120/66; PULSE 53; TEMP 97.9
--- NOTE | 2019-01-30 15:39 | PN ---
Teaching Attending Note Name of Resident: Chidi Ruano ATTENDING PHYSICIAN STATEMENT I saw and evaluated the patient. I reviewed the resident's note and discussed the case with the resident. I agree with the resident's findings and plan as documented. SUBJECTIVE: Patient is comfortable with no acute distress. No fever or chills, no shortness of breath. Patient does not want to go to detox. OBJECTIVE: Vital Signs Temperature 97.9 F 01/30/19 13:59 Pulse Rate 53 L 01/30/19 13:59 Respiratory Rate 16 01/30/19 13:59 Blood Pressure 120/66 01/30/19 13:59 O2 Sat by Pulse Oximetry (%) 100 01/30/19 13:59 GENERAL: The patient is awake, alert, and fully oriented, in no acute distress. HEAD: Normal with no signs of trauma. EYES: PERRL, extraocular movements intact, sclera anicteric, conjunctiva clear. ENT: Ears normal, oropharynx clear without exudates, moist mucous membranes. NECK: Trachea midline, full range of motion, supple. LUNGS: Breath sounds equal, clear to auscultation bilaterally, no wheezes, no crackles, no accessory muscle use. HEART: Regular rate and rhythm, S1, S2 without murmur, rub or gallop. ABDOMEN: Soft, NT,ND, normoactive bowel sounds, no guarding, no rebound, no hepatosplenomegaly, no masses. EXTREMITIES: 2+ pulses, warm, well-perfused, no edema. NEUROLOGICAL: Cranial nerves II through XII grossly intact. Normal speech, gait not observed. PSYCH: Normal mood, normal affect. SKIN: Warm, dry, normal turgor, no rashes or lesions noted CBCD WBC 3.6 K/mm3 (4.0-10.0) L 01/30/19 06:00 RBC 3.49 M/mm3 (4.00-5.60) L 01/30/19 06:00 Hgb 11.2 GM/dL (11.7-16.9) L 01/30/19 06:00 Hct 32.1 % (35.4-49) L D 01/30/19 06:00 MCV 91.9 fl (80-96) 01/30/19 06:00 MCHC 34.9 g/dl (32.0-35.9) 01/30/19 06:00 RDW 12.6 % (11.9-15.9) 01/30/19 06:00 Plt Count 115 K/MM3 (134-434) L D 01/30/19 06:00 MPV 8.5 fl (7.5-11.1) D 01/30/19 06:00 CMP Sodium 140 mmol/L (136-145) 01/30/19 06:00 Potassium 4.1 mmol/L (3.5-5.1) 01/30/19 06:00 Chloride 107 mmol/L (98-107) 01/30/19 06:00 Carbon Dioxide 27 mmol/L (21-32) 01/30/19 06:00 Anion Gap 5 MMOL/L (8-16) L 01/30/19 06:00 BUN 12.8 mg/dL (7-18) 01/30/19 06:00 Creatinine 0.8 mg/dL (0.55-1.3) 01/30/19 06:00 Random Glucose 86 mg/dL (74-106) 01/30/19 06:00 Calcium 8.3 mg/dL (8.5-10.1) L 01/30/19 06:00 Total Bilirubin 0.2 mg/dL (0.2-1) 01/29/19 14:10 AST 16 U/L (15-37) 01/29/19 14:10 ALT 26 U/L (13-61) 01/29/19 14:10 Alkaline Phosphatase 67 U/L (45-117) 01/29/19 14:10 Total Protein 7.3 g/dl (6.4-8.2) 01/29/19 14:10 Albumin 3.6 g/dl (3.4-5.0) 01/29/19 14:10 CARDIAC ENZYMES Creatine Kinase 93 U/L (26-308) 01/29/19 14:10 Troponin I < 0.02 ng/ml (0.00-0.05) 01/29/19 14:10 Current Medications Generic Name Dose Route Start Last Admin Trade Name Freq PRN Reason Stop Dose Admin Acetaminophen 650 mg 01/30/19 03:04 Tylenol - PO Q6H PRN Fever Or Pain Enoxaparin Sodium 40 mg 01/30/19 10:00 01/30/19 10:59 Lovenox - SQ 40 mg DAILY CHANO Administration Lactated Ringer's 1,000 ml in 1,000 mls @ 200 mls/hr 01/29/19 21:45 01/29/19 22:45 Lactated Ringers Solution IV 200 mls/hr ASDIR CHANO Administration Methadone HCl 120 mg/ 140 mg 01/30/19 10:45 01/30/19 10:59 Methadone HCl 20 mg PO 140 mg 0600 CHANO Administration Home Medications Medication Instructions Recorded Methadone [Dolophine -] 140 mg PO DAILY 03/30/18 Buspirone HCl [Buspar -] 10 mg PO DAILY 01/29/19 ASSESSMENT AND PLAN: This is a 23 y/o M with a polysubstance abuse hx s/p d/c from detox at [facility] for benzos, cocaine, and heroin abuse who was brought in by his grandma after pt noticed one episoder of black stool and epigastric pain/ chest pain this afternoon. Pt admits to 1/2 gram of cocaine injected during this episode and made the symptoms worse, as it was the largest amount he had ever taken at one time. #Elevated lipase r/o pancreatitis; repeat Lipase is in 100's, no further pain , no tolerating diet , no further bleed is noted. #Melena no further bleed, no further pain. Dr. Chauhan in 04/10 did an EGD which was negative at the time he had melena. #Polysubstance abuse patient does not want to go to rehab. patient can follow up with within a week.
--- NOTE | 2019-01-30 17:15 | DS ---
Physical Exam: SUBJECTIVE: Patient seen and examined. Pt asymptomatic, afebrile, stable without any further c/o or issues. Pt states he has improved. Denies fevers,c/n/ v/d/chest pain/sob OBJECTIVE: Vital Signs Period Temp Pulse Resp BP Sys/Nuno Pulse Ox Last 24 Hr 97.7 F-98.2 F 53-112 16-20 102-120/58-73 98-100 PHYSICAL EXAM GENERAL: AOX3, AC/AT HEENT: PERRLA, EOMI. External ears are normal and hearing is grossly intact. Neck: Supple, nontender. No LAD or thyromegaly. No JVD Chest: CTAB. no crackles or wheezes Heart: RRR. No S3, rub or murmur Abdomen: Not distended, soft, nontender and no HSM. No rebound or guarding. Normal bowel sounds. Ext: Peripheral pulses intact. No leg edema. Neuro: Alert. Oriented x3. CN 2-12 grossly intact. Psych: Appropriate mood and affect. Good insight. LABS Laboratory Results - last 24 hr 01/29/19 01/30/19 01/30/19 14:10 06:00 06:00 WBC 3.6 L RBC 3.49 L Hgb 11.2 L Hct 32.1 L D MCV 91.9 MCH 32.1 MCHC 34.9 RDW 12.6 Plt Count 115 L D MPV 8.5 D Sodium 140 Potassium 4.1 Chloride 107 Carbon Dioxide 27 Anion Gap 5 L BUN 12.8 Creatinine 0.8 Est GFR (CKD-EPI)AfAm 145.93 Est GFR (CKD-EPI)NonAf 125.91 Random Glucose 86 Calcium 8.3 L Phosphorus 4.1 Magnesium 2.1 Triglycerides 71 Lipase 164 TSH 3.92 H D Alcohol, Quantitative < 3 Current Medications Acetaminophen (Tylenol -) 650 mg PO Q6H PRN PRN Reason: Fever Or Pain Enoxaparin Sodium (Lovenox -) 40 mg SQ DAILY [facility] Last Admin: 01/30/19 10:59 Dose: 40 mg Lactated Ringer's (Lactated Ringers Solution) 1,000 ml in 1,000 mls @ 200 mls/ hr IV ASDIR [facility] Last Admin: 01/29/19 22:45 Dose: 200 mls/hr Methadone HCl 120 mg/ (Methadone HCl 20 mg) 140 mg PO 0600 [facility] Last Admin: 01/30/19 10:59 Dose: 140 mg Home Medications Medication Instructions Recorded Methadone [Dolophine -] 140 mg PO DAILY 03/30/18 Buspirone HCl [Buspar -] 10 mg PO DAILY 01/29/19 HOSPITAL COURSE: Date of Admission:01/29/19 23 y/o M, pmh with polysubstance abuse hx s/p d/c from detox at [facility] for benzos, cocaine, and heroin abuse who was brought in by his grandma after pt noticed one episode of black stool and epigastric pain/chest pain this afternoon. Upon arrival, pt's black stool was not seen, sobt was neg, but he had a lipase of 1001. Pt was worked up for possible pancreatitis 2/2 to drug use. His Urine Tox was positive for cocaine, methadone, THC and BZDs. Ultrasound was negative for gallstones, showed borderline hepatosplenomegaly and fatty liver but no pancreatic pathology. No evidence of pancreatitis on CT abdomen. Clinically pt's chest/abdominal pain resolved within a few minutes of starting IV LR at 200 ml/hour and tylenol for pain control. He was tolerating diet, ambulating well and overall stable. He was pain free. Pt was discharged and recommended to f/u with his primary care. Lipase- 1001, CT abd pelvis w/o contrast- negative for acute pathology US negative for gall stones, but hepatosplenomegaly and fatty infiltration of liver present. EKG sinus salvador with sinus arrhythmia CXR neg Date of Discharge: 01/30/19 Minutes to complete discharge: 35 Discharge Summary Problems reviewed: Yes Reason For Visit: CANNABIS DEPENDENCE,PANCREATITS, Current Active Problems Abdominal pain (Acute) Cannabis dependence (Acute) Pancreatitis (Acute) Polysubstance abuse (Chronic) Condition: Improved - Instructions Diet, Activity, Other Instructions: You were admitted to the hospital for abdominal pain. While you were in the hospital, we evaluated you with lab work, blood work, imaging including X ray of your chest and CAT scan of your abdomen, and your symptoms were likely caused by inflammation of your pancreas. We treated you with IV fluids and you improved adn were stable to be discharged home Please take all your medications as prescribed Please follow up with the detox physician Dr. Olmos Please follow up with your primary care physician in 1 week Please refrain from alcohol and drug use Return to the emergency room if you experience worsening of your symptoms, nausea, vomiting, shortness of breath, chest pain or worsening of any condition Referrals: Luis Miguel Dao MD [Staff Physician] - 1 Week John Olmos DO [Staff Physician] - Disposition: HOME - Home Medications Comprehensive Discharge Medication List: Ambulatory Orders Methadone [Dolophine -] 140 mg PO DAILY 03/30/18 Buspirone HCl [Buspar -] 10 mg PO DAILY 01/29/19 This patient is new to me today: Yes Date on this admission: 01/30/19 Emergency Visit: Yes ED Registration Date: 01/29/19 Care time: The patient presented to the Emergency Department on the above date and was hospitalized for further evaluation of their emergent condition. Critical Care patient: No - Discharge Referral Referred to [facility] No ATTENDING PHYSICIAN STATEMENT I saw and evaluated the patient. I reviewed the resident's note and discussed the case with the resident. I agree with the resident's findings and plan as documented. SUBJECTIVE: OBJECTIVE: ASSESSMENT AND PLAN:
== END 2019-01-30 18:42 | disposition home or self-care (01) | DRG 251 ==
LOC: JER 14:32 → JERBED 18:19
PROVIDERS: ADMIT Internal Medicine; ATTEND Internal Medicine
DX: R10.10 Upper abdominal pain, unspecified (principal); F17.210 Nicotine dependence, cigarettes, uncomplicated; K85.30 Drug induced acute pancreatitis without necrosis or infection; F41.9 Anxiety disorder, unspecified; F11.20 Opioid dependence, uncomplicated; F12.20 Cannabis dependence, uncomplicated; F19.20 Other psychoactive substance dependence, uncomplicated; E46 Unspecified protein-calorie malnutrition; Z68.21 Body mass index [BMI] 21.0-21.9, adult; R16.2 Hepatomegaly with splenomegaly, not elsewhere classified; R00.1 Bradycardia, unspecified
CPT/HCPCS: 36415; 71046-TC-FY; 74176-TC; 76705-TC; 80048; 80053; 80307; 81003; 82550; 83690; 83735; 84100; 84443; 84478; 84484; 85025; 85027; 93005; 93010; 99285-25; J0131; J7030

== ENCOUNTER 2019-02-05 15:52 | Emergency (ER) | payer OTHER ==
--- NOTE | 2019-02-05 15:57 | PDOC ---
Rapid Medical Evaluation Time Seen by Provider: 02/05/19 15:56 Medical Evaluation: Allergies Allergy/AdvReac Type Severity Reaction Status Date / Time No Known Allergies Allergy Verified 01/29/19 14:40 02/05/19 15:57 I have performed a brief in-person evaluation of this patient. The patient presents with a chief complaint of: chest pain x 3 weeks, hx of polysubstance abuse, last cocaine use this morning Pertinent physical exam findings: smells of marijuana I have ordered the following: labs, ekg The patient will proceed to the ED for further evaluation. Discharge Disposition - Diagnosis Polysubstance abuse, Chest pain - Referrals - Patient Instructions - Post Discharge Activity
[2019-02-05 16:00] VITALS: BP 134/74; TEMP 97.6
[2019-02-05 16:46] LABS: BASO % 0.5 % (0-2.0); EOS % 3.1 % (0-4.5); HEMATOCRIT 41.6 % (35.4-49); HEMOGLOBIN 14.4 GM/dL (11.7-16.9); LYMPH % 17.8 % (8-40); MCHC 34.5 g/dl (32.0-35.9); MEAN CELL VOLUME 92.7 fl (80-96); MEAN PLT VOLUME 7.2 fl (7.5-11.1); MONO % 4.7 % (3.8-10.2); NEUT % 73.9 % (42.8-82.8); PLATELET COUNT 223 K/MM3 (134-434); RBC 4.49 M/mm3 (4.00-5.60); RDW 12.8 % (11.9-15.9); WHITE BLOOD COUNT 6.6 K/mm3 (4.0-10.0)
--- NOTE | 2019-02-05 16:48 | PDOC ---
History of Present Illness - General Chief Complaint: Chest Pain Stated Complaint: CHEST PAIN Time Seen by Provider: 02/05/19 15:56 History Source: Patient - History of Present Illness Initial Comments: 02/07/19 10:24 Mr. Cuello is a 23 y/o man with hx gastritis, polysubstance use, recent admission for pancreatitis p/w abdominal pain, nausea. He reports that for the last 3 days he has experiences epigastric pain that radiates upwards through his throat. He endorses mild generalized abdominal pain, as well as nausea. He denies any vomiting, fevers, diarrhea, constipation, or limitations to his appetite. He reports that his symptoms have been intermittent for approx one year. He reports that he was told to follow up with a internal communications intern for an endoscopy after his recent admission but has not followed up yet. Past History - Past Medical History Allergies/Adverse Reactions: Allergies Allergy/AdvReac Type Severity Reaction Status Date / Time No Known Allergies Allergy Verified 02/05/19 16:00 Home Medications: Ambulatory Orders Methadone [Dolophine -] 140 mg PO DAILY 03/30/18 Buspirone HCl [Buspar -] 10 mg PO DAILY 01/29/19 Famotidine [Pepcid] 20 mg PO DAILY #20 tablet 02/05/19 Anemia: No Asthma: No Cancer: No Cardiac Disorders: No CVA: No COPD: No CHF: No DVT: No Dementia: No Diabetes: No GI Disorders: No Disorders: No HTN: No Hypercholesterolemia: No Kidney Stones: No Seizures: Yes (withdrawl from drug at age 14 once,) Thyroid Disease: No - Surgical History Abdominal Surgery: No Appendectomy: No Cardiac Surgery: No Cholecystectomy: No Lung Surgery: No Neurologic Surgery: No Orthopedic Surgery: No - Reproductive History Testicular Surgery: No - Immunization History Immunization Up to Date: Yes - Psycho Social/Smoking Cessation Hx Smoking Status: No Smoking History: Current every day smoker Have you smoked in the past 12 months: Yes Number of Cigarettes Smoked Daily: 10 Cigars Per Day: 0 Information on smoking cessation initiated: No 'Breaking Loose' booklet given: 03/30/18 Hx Alcohol Use: No Drug/Substance Use Hx: Yes (cocaine and everything else except heroin) Substance Use Type: Alcohol, Heroin, Marijuana, Tranquilizers Hx Substance Use Treatment: Yes (several detox/rehab. tx [facility], outreach, [facility] outpatient ) Review of Systems - Review of Systems Able to Perform ROS?: Yes Comments:: 02/07/19 10:27 ROS: GENERAL/CONSTITUTIONAL: No fever or chills. No weakness. HEAD, EYES, EARS, NOSE AND THROAT: No change in vision. No ear pain or discharge. No sore throat. CARDIOVASCULAR: No chest pain or shortness of breath RESPIRATORY: No cough, wheezing, or hemoptysis. GASTROINTESTINAL: Nausea, epigastric pain. No vomiting, diarrhea or constipation. GENITOURINARY: No dysuria, frequency, or change in urination. MUSCULOSKELETAL: No joint or muscle swelling or pain. No neck or back pain. SKIN: No rash NEUROLOGIC: No headache, vertigo, loss of consciousness, or change in strength/ sensation. ENDOCRINE: No increased thirst. No abnormal weight change HEMATOLOGIC/LYMPHATIC: No anemia, easy bleeding, or history of blood clots. ALLERGIC/IMMUNOLOGIC: No hives or skin allergy. *Physical Exam - Vital Signs Last Vital Signs Temp Pulse Resp BP Pulse Ox 97.6 F 124 H 16 134/74 100 02/05/19 15:58 02/05/19 15:58 02/05/19 15:58 02/05/19 15:58 02/05/19 15:58 - Physical Exam 02/07/19 10:27 PE: GENERAL: Awake, alert, and fully oriented, in no acute distress HEAD: No signs of trauma, normocephalic, atraumatic EYES: PERRLA, EOMI, sclera anicteric, conjunctiva clear ENT: Auricles normal inspection, hearing grossly normal, nares patent, oropharynx clear without exudates. Moist mucosa NECK: Normal ROM, supple, no lymphadenopathy, JVD, or masses LUNGS: No distress, speaks full sentences, clear to auscultation bilaterally HEART: Regular rate and rhythm, normal S1 and S2, no murmurs, rubs or gallops, peripheral pulses normal and equal bilaterally. ABDOMEN: Soft, nontender, normoactive bowel sounds. No guarding, no rebound. No masses EXTREMITIES : Normal inspection, Normal range of motion, no edema. No clubbing or cyanosis NEUROLOGICAL: Cranial nerves II through XII grossly intact. Normal speech, normal gait, no focal sensorimotor deficits SKIN: Warm, Dry, normal turgor, no rashes or lesions noted ED Treatment Course - LABORATORY CBC & Chemistry Diagram: 02/05/19 16:12 02/05/19 16:12 Medical Decision Making - Medical Decision Making 02/07/19 10:28 23M w/hx gastritis, polysubstance use, pancreatitis p/w three days of nausea and epigastric pain with no vomiting or decreased appetite, most likely representing gastritis vs peptic ulcer disease but most concerning for pancreatitis. Plan: CBC CMP Lipase Maalox Pepcid Troponin EKG CXR 1L LR NPO pending lipase Dispo: Pending labs, likely discharge with GI follow up Discharge - Discharge Information Problems reviewed: Yes Clinical Impression/Diagnosis: Polysubstance abuse Gastritis Qualifiers: Gastritis type: unspecified gastritis Chronicity: chronic Gastritis bleeding: presence of bleeding unspecified Qualified Code(s): K29.50 - Unspecified chronic gastritis without bleeding Condition: Stable Disposition: HOME - Admission No - Additional Discharge Information Prescriptions: Famotidine [Pepcid] 20 mg PO DAILY #20 tablet - Follow up/Referral Referrals: Agus Sanchez MD [Primary Care Provider] - Damion Palacios DO [Staff Physician] - - Patient Discharge Instructions Patient Printed Discharge Instructions: DI for Gastritis, DI for Atypical Chest Pain Additional Instructions: You were seen in the ER for chest pain and nausea. Your heart blood level was normal, and your EKG was normal. Your pain may be caused by gastritis. We are prescribing you a medication to help with your symptoms. Please make sure to follow up with gastroenterology (intestine doctors) as soon as possible for an endoscopy. Return to the ER if you develop weakness, trouble breathing, worsening chest pain. - Post Discharge Activity
[2019-02-05 17:07] LABS: INR 1.11 (0.83-1.09); PROTHROMBIN TIME (PATIENT) 13.1 SEC (9.7-13.0)
[2019-02-05 17:09] LABS: ACTIVATED PTT 35.7 SECONDS (25.2-36.5)
[2019-02-05] MEDS ORDERED: FAMOTIDINE 20 MG TABLET PO ONE (17:10)
[2019-02-05] MEDS ORDERED: MAG HYDROX/AL HYDROX/SIMETH 30 ML UNIT-DOSE CUP PO ONE (17:10)
[2019-02-05 17:11] VITALS: PULSE 88
[2019-02-05 17:12] LABS: ALBUMIN 4.3 g/dl (3.4-5.0); BILIRUBIN,TOTAL 0.3 mg/dL (0.2-1); CALCIUM 8.9 mg/dL (8.5-10.1); POTASSIUM 4.6 mmol/L (3.5-5.1)
[2019-02-05] MEDS ORDERED: LACTATED RINGERS SOLUTION 1000 ML INFUS.BAG IV ONE (17:21)
[2019-02-05 17:40] LABS: MAGNESIUM 2.2 mg/dL (1.8-2.4)
[2019-02-05] MEDS ORDERED: MAG HYDROX/AL HYDROX/SIMETH 30 ML UNIT-DOSE CUP ONE (18:12)
--- NOTE | 2019-02-05 19:31 | PDOC ---
Documentation entered by Roro Forbes SCRIBE, acting as scribe for Dolly Ruano MD. Dolly Ruano MD: This documentation has been prepared by the Leidy ahmadi Xhesika, SCRIBE, under my direction and personally reviewed by me in its entirety. I confirm that the documentation accurately reflects all work, treatment, procedures, and medical decision making performed by me. Attending Attestation - Resident Resident Name: Andre Kraus - ED Attending Attestation I have performed the following: I have examined & evaluated the patient, The case was reviewed & discussed with the resident, I agree w/resident's findings & plan, Exceptions are as noted - HPI HPI: 02/05/19 19:30 23-year-old male with a history of multi-substance abuse presents with epigastric discomfort and nausea HPI patient recently had a work-up for cannabis induced pancreatitis - Physicial Exam PE: 02/05/19 19:31 Thin 23-year-old male presents with epigastric discomfort and some nausea that he has had intermittently for 2 years but most recently associated with his pancreatitis last week Head normocephalic atraumatic Neck is supple Lungs are clear to auscultation bilaterally CVS is regular rate rhythm S1-S2 Abdomen flat, nontender, no rebound, no guarding No flank pain Skin warm and dry Neuro alert and oriented x3 and ambulatory Psych he is appropriate - Medical Decision Making 02/05/19 19:33 Patient is afebrile today CBC is unremarkable and his chemistries are unremarkable. He has no abdominal rebound or guarding and he has had no vomiting during his observation. He is concerned because he left before he had endoscopy last week. He states he has had GI problems for 2 years but has not followed up with a land leveler Explained to him that today his labs do not reflect a pancreatitis and his symptoms sound very much like acid reflux He states he has had similar symptoms of epigastric discomfort off and on for 2 years and therefore he was given a referral to land leveler to have further work-up
--- NOTE | 2019-02-06 12:37 | EKG ---
Test Reason : Blood Pressure : / mmHG Vent. Rate : 103 BPM Atrial Rate : 103 BPM P-R Int : 132 ms QRS Dur : 096 ms QT Int : 358 ms P-R-T Axes : 069 -10 059 degrees QTc Int : 468 ms SINUS TACHYCARDIA LEFT ATRIAL ENLARGEMENT INCOMPLETE RIGHT BUNDLE BRANCH BLOCK BORDERLINE ECG WHEN COMPARED WITH ECG OF 29-JAN-2019 22:07, VENT. RATE HAS INCREASED BY 48 BPM QT HAS LENGTHENED Confirmed by LEVAR BAILEY, RITU ([id number]) on 02/06/2019 12:37:33 PM Referred By: Confirmed By:RITU CRISTOBAL MD
== END 2019-02-05 19:38 | disposition home or self-care (01) ==
LOC: JER 15:52
PROC: 3E0F7GC Introduction of Other Therapeutic Substance into Respiratory Tract, Via Natural or Artificial Opening (ICD-10-PCS; principal; 2019-02-05)
DX: K29.50 Unspecified chronic gastritis without bleeding (principal); F19.10 Other psychoactive substance abuse, uncomplicated
CPT/HCPCS: 36415; 71046-TC-FY; 80053; 82550; 83690; 83735; 84484; 85025; 85610; 85730; 93005; 93010; 99284-25

== ENCOUNTER 2019-03-28 11:23 | Emergency (ER) | payer OTHER ==
[2019-03-28 11:42] VITALS: TEMP 98; BMI 20.7
--- NOTE | 2019-03-28 12:14 | PDOC ---
History of Present Illness - General Chief Complaint: Nausea/Vomiting Stated Complaint: FLU LIKE SYMPTOMS Time Seen by Provider: 03/28/19 12:10 - History of Present Illness Initial Comments: 03/28/19 14:24 23y/o M hx of polysubstance abuse (on methadone), gastritis, pancreatitis, presents to the ER with 2-3 days of nausea and vomiting. His last marijuana use was 3 days ago. He endorses cramping upper abdominal pain when he vomits and which subsides shortly after vomiting. He has had about 7 episodes of NBNB emesis since yesterday. He endorses watery diarrhea and 1 episode of dysuria this a.m. He denies, fevers, chills, BRBPR, chest pain, cough, shortness of breath. 03/28/19 14:42 Past History - Past Medical History Allergies/Adverse Reactions: Allergies Allergy/AdvReac Type Severity Reaction Status Date / Time No Known Allergies Allergy Verified 02/05/19 16:00 Home Medications: Ambulatory Orders Methadone [Dolophine -] 140 mg PO DAILY 03/30/18 Buspirone HCl [Buspar -] 10 mg PO DAILY 01/29/19 Famotidine [Pepcid] 20 mg PO DAILY #20 tablet 02/05/19 Anemia: No Asthma: No Cancer: No Cardiac Disorders: No CVA: No COPD: No CHF: No DVT: No Dementia: No Diabetes: No GI Disorders: No Disorders: No HTN: No Hypercholesterolemia: No Kidney Stones: No Seizures: Yes (withdrawl from drug at age 14 once,) Thyroid Disease: No - Surgical History Abdominal Surgery: No Appendectomy: No Cardiac Surgery: No Cholecystectomy: No Lung Surgery: No Neurologic Surgery: No Orthopedic Surgery: No - Reproductive History Testicular Surgery: No - Immunization History Immunization Up to Date: Yes - Psycho Social/Smoking Cessation Hx Smoking Status: No Smoking History: Current every day smoker Have you smoked in the past 12 months: Yes Number of Cigarettes Smoked Daily: 10 Cigars Per Day: 0 Information on smoking cessation initiated: No 'Breaking Loose' booklet given: 03/30/18 Hx Alcohol Use: Yes Drug/Substance Use Hx: Yes Substance Use Type: Alcohol, Heroin, Marijuana, Tranquilizers Hx Substance Use Treatment: Yes (several detox/rehab. tx [facility], outreach, [facility] outpatient ) Review of Systems - Review of Systems Constitutional: No: Chills, Fever HEENTM: No: Eye Pain, Blurred Vision Respiratory: No: Cough, Shortness of Breath Cardiac (ROS): No: Chest Pain, Palpitations ABD/GI: Yes: Nausea, Vomiting : Yes: Burning. No: Incontinence Musculoskeletal: No: Back Pain, Joint Pain Integumentary: No: Bruising, Change in Color Neurological: No: Headache, Numbness *Physical Exam - Vital Signs Last Vital Signs Temp Pulse Resp BP Pulse Ox 98.0 F 79 18 106/67 98 03/28/19 11:39 03/28/19 11:39 03/28/19 11:39 03/28/19 11:39 03/28/19 11:39 - Physical Exam 03/28/19 13:09 Well developed, well nourished. Awake and alert. No acute distress. HEENT:Normocephalic, atraumatic. PERRLA, EOMI. No conjunctival pallor. Sclera are non-icteric. Moist mucous membranes. Oropharynx is clear. NECK: Supple. Full ROM. No JVD. Carotid pulses 2+ and symmetric, without bruits. No thyromegaly. No lymphadenopathy. CARDIOVASCULAR:Regular rate and rhythm. No murmurs, rubs, or gallops. Distal pulses are 2+ and symmetric. PULMONARY: No evidence of respiratory distress. Lungs clear to auscultation bilaterally. No wheezing, rales or rhonchi. ABDOMINAL:Soft. Non-tender. Non-distended. No rebound or guarding. No organomegaly. hyperactive bowel sounds. MUSCULOSKELETAL Normal range of motion at all joints. No bony deformities or tenderness. No CVA tenderness. EXTREMITIES: No cyanosis. No clubbing. No edema. No calf tenderness. SKIN: Warm and dry. Normal capillary refill. No rashes. No jaundice. NEUROLOGICAL: Alert, awake, appropriate. Cranial nerves 2-12 intact. No deficits to light touch and temperature in face, upper extremities and lower extremities. No motor deficits in the in face, upper extremities and lower extremities. Normoreflexic in the upper and lower extremities. Normal speech. Toes are down-going bilaterally. Gait is normal without ataxia. PSYCHIATRIC: Cooperative. Good eye contact. Appropriate mood and affect. ED Treatment Course - LABORATORY CBC & Chemistry Diagram: 03/28/19 13:20 03/28/19 13:20 Medical Decision Making - Medical Decision Making 03/28/19 13:10 23 y/o M with nausea and vomiting cbc, cmp, ua, urine culture, ekg, Meds:iv NS, Reglan 03/28/19 14:46 pt feeling slightly better not able to urinate at this time Lipase wnl 03/28/19 14:46 receiving second liter of IV fluids 03/28/19 15:52 Pt feeling better, has been tolerating PO UA still pending, dispo once labs are back. Discharge - Discharge Information Problems reviewed: Yes Clinical Impression/Diagnosis: Abdominal pain Qualifiers: Abdominal location: upper abdomen, unspecified Qualified Code(s): R10.10 - Upper abdominal pain, unspecified Gastritis Qualifiers: Gastritis type: other gastritis Chronicity: unspecified Gastritis bleeding: without bleeding Qualified Code(s): K29.60 - Other gastritis without bleeding Condition: Stable Disposition: HOME - Admission No - Follow up/Referral - Patient Discharge Instructions Patient Printed Discharge Instructions: DI for Abdominal Pain-Adult Additional Instructions: You were seen in the ER for abdominal pain follow up with your primary doctor in the next 2-3 days. RETURN TO THE ER if any of your symptoms worsen. you develop fevers, chills. - Post Discharge Activity
[2019-03-28] MEDS ORDERED: METOCLOPRAMIDE HCL INJECTION 10 MG/2 ML VIAL IVPB ONE (12:53)
[2019-03-28] MEDS ORDERED: SODIUM CHLORIDE 0.9% 500 ML INFUS.BAG IV ONE ×2 (12:53→13:46)
[2019-03-28] MEDS ORDERED: METOCLOPRAMIDE HCL INJECTION 10 MG/2 ML VIAL ONE (12:57)
[2019-03-28] MEDS ORDERED: FAMOTIDINE 20 MG/50 ML IVPB 20 MG/50 ML MG IVPB ONE ×2 (13:16→13:30)
[2019-03-28 13:43] LABS: BASO % 0.1 % (0-2.0); EOS % 0.6 % (0-4.5); HEMATOCRIT 42.5 % (35.4-49); HEMOGLOBIN 14.9 GM/dL (11.7-16.9); MCH 31.8 pg (25.7-33.7); MCHC 35.1 g/dl (32.0-35.9); MEAN CELL VOLUME 90.5 fl (80-96); MEAN PLT VOLUME 7.5 fl (7.5-11.1); MONO % 8.2 % (3.8-10.2); NEUT % 73.1 % (42.8-82.8); PLATELET COUNT 170 K/MM3 (134-434); RDW 12.9 % (11.9-15.9); WHITE BLOOD COUNT 3.9 K/mm3 (4.0-10.0)
--- NOTE | 2019-03-28 14:11 | PDOC ---
Attending Attestation - Resident Resident Name: Sahra Vee - ED Attending Attestation I have performed the following: I have examined & evaluated the patient, The case was reviewed & discussed with the resident, I agree w/resident's findings & plan - HPI HPI: 03/28/19 14:09 23-year-old male with history of polysubstance abuse on methadone and daily marijuana smoker presents with 2 days of vomiting and intermittent abdominal pain associated with diarrhea. Nonbloody nonbilious vomiting and nonbloody diarrhea, intermittent crampy abdominal pain mostly in the epigastric region, waxes and wanes in severity. No fevers or chills, brother with same symptoms, otherwise no travel or recent antibiotics. Patient does have history of having vomiting spells about 5-6 times a year, states this is slightly different because of the diarrhea. - Physicial Exam PE: 03/28/19 14:10 Vital signs stable Alert lying in stretcher, no acute distress No jaundice or pallor, dry mucosa Heart is regular, lungs are clear Abdomen benign No edema, no rash - Medical Decision Making 03/28/19 14:10 Healthy 23-year-old male on methadone and daily marijuana user who presents with nausea/vomiting/diarrhea/crampy abdominal pain for 2 days, nonlocalizing abdominal exam and hemodynamically stable. Presentation could be most consistent with gastroenteritis, question viral versus toxin mediated. Patient may also have component of gastroparesis given his history of vomiting spells, slightly different today secondary to diarrhea. Labs Antiemetic, antacid, IV fluids No indication for emergent imaging Reassess, disposition accordingly with GI follow-up
[2019-03-28 14:45] LABS: ALBUMIN 3.7 g/dl (3.4-5.0); BILIRUBIN,TOTAL 0.9 mg/dL (0.2-1); BLOOD UREA NITROGEN 20.4 mg/dL (7-18); CALCIUM 8.7 mg/dL (8.5-10.1); CREATININE 1.2 mg/dL (0.55-1.3); POTASSIUM 4.1 mmol/L (3.5-5.1); TOT PROT 7.7 g/dl (6.4-8.2)
[2019-03-28 17:37] LABS: URINE APPEARANCE CLEAR; URINE BILIRUBIN NEGATIVE (NEGATIVE); URINE COLOR DK YELLOW; URINE GLUCOSE (UA) NEGATIVE (NEGATIVE); URINE KETONE NEGATIVE (NEGATIVE); URINE LEUK ESTERASE NEGATIVE (NEGATIVE); URINE NITRITE NEGATIVE (NEGATIVE); URINE PROTEIN TRACE (NEGATIVE)
[2019-03-28 18:03] VITALS: BP 123/74; PULSE 74
== END 2019-03-28 18:05 | disposition home or self-care (01) ==
LOC: JER 11:23
PROC: 3E033GC Introduction of Other Therapeutic Substance into Peripheral Vein, Percutaneous Approach (ICD-10-PCS; principal; 2019-03-28)
PROC: 3E0337Z Introduction of Electrolytic and Water Balance Substance into Peripheral Vein, Percutaneous Approach (ICD-10-PCS; 2019-03-28)
DX: K29.60 Other gastritis without bleeding (principal); R10.10 Upper abdominal pain, unspecified; F17.210 Nicotine dependence, cigarettes, uncomplicated; R56.9 Unspecified convulsions
CPT/HCPCS: 36415; 80053; 81003; 83690; 85025; 87086; 99283-25

== ENCOUNTER 2023-01-15 08:51 | Emergency (ER) | payer OTHER ==
[2023-01-15 08:56] VITALS: BMI 22.8
[2023-01-15] MEDS ORDERED: ACETAMINOPHEN 325 MG TABLET (FP) PO ONE (09:39)
[2023-01-15] MEDS ORDERED: ACETAMINOPHEN 325 MG TABLET (FP) ONE (09:47)
[2023-01-15] MEDS ORDERED: SODIUM CHLORIDE 0.9% 500 ML INFUS.BAG IV ONE (11:05)
[2023-01-15] MEDS ORDERED: METOCLOPRAMIDE HCL INJECTION 10 MG/2 ML VIAL IVPUSH ONE (11:05)
[2023-01-15] MEDS ORDERED: KETOROLAC TROMETHAMINE 15 MG/ML VIAL IVPUSH ONE (11:05)
[2023-01-15] MEDS ORDERED: IBUPROFEN 600 MG TABLET (FP) PO ONE ×2 (11:12→11:23)
[2023-01-15] MEDS ORDERED: METOCLOPRAMIDE HCL INJECTION 10 MG/2 ML VIAL ONE (11:23)
[2023-01-15 12:05] VITALS: BP 112/66; PULSE 66; RESP 16; TEMP 98.4
== END 2023-01-15 12:05 | disposition home or self-care (01) ==
LOC: JER 08:51
PROC: 3E033GC Introduction of Other Therapeutic Substance into Peripheral Vein, Percutaneous Approach (ICD-10-PCS; principal; 2023-01-15)
DX: R51.9 Headache, unspecified (principal); R09.81 Nasal congestion; R05.9 Cough, unspecified; Z20.822 Contact with and (suspected) exposure to COVID-19
CPT/HCPCS: 0241U-QW; 99284-25

== ENCOUNTER 2023-08-18 16:38 | Inpatient (IN) | payer OTHER ==
[2023-08-18 17:55] VITALS: BMI 21.2
[2023-08-18] MEDS ORDERED: ACETAMINOPHEN 325 MG TABLET (FP) PO PRN (19:14)
[2023-08-18] MEDS ORDERED: POLYETHYLENE GLYCOL (HEALTHYLAX) 3350 17 GM PACKET PO PRN (19:14)
[2023-08-18] MEDS ORDERED: MAG HYDROX/AL HYDROX/SIMETH 30 ML UNIT-DOSE CUP PO PRN (19:14)
[2023-08-18] MEDS ORDERED: guaiFENesin 600 MG TABLET.ER (FP) PO PRN (19:14)
[2023-08-18] MEDS ORDERED: IBUPROFEN 400 MG TABLET (FP) PO PRN (19:14)
[2023-08-18] MEDS ORDERED: LOPERAMIDE HCL 2 MG CAPSULE PO PRN (19:14)
[2023-08-18] MEDS ORDERED: BENZONATATE 200 MG CAPSULE PO PRN (19:14)
[2023-08-18] MEDS ORDERED: DICYCLOMINE HCL 10 MG CAPSULE PO PRN (19:14)
[2023-08-18] MEDS ORDERED: BENZOCAINE/MENTHOL (CHLORASEPTIC ) LOZENGE MM PRN (19:14)
[2023-08-18] MEDS ORDERED: NALOXONE HCL 0.4 MG/ML VIAL IM PRN (19:14)
[2023-08-18] MEDS ORDERED: MAGNESIUM HYDROX 2400MG/30ML ORAL SUSPENSION 30 ML CUP PO PRN (19:14)
[2023-08-18] MEDS ORDERED: BISMUTH SUBSALICYLATE 524 MG/30 ML PO PRN (19:14)
[2023-08-18] MEDS ORDERED: IBUPROFEN 600 MG TABLET (FP) PO PRN (19:14)
[2023-08-18] MEDS ORDERED: ONDANSETRON *ODT* 4 MG TABLET SL PRN (19:14)
[2023-08-18] MEDS ORDERED: NALOXONE (NARCAN) HCL 4 MG/0.1 ML SPRAY NS PRN (19:14)
[2023-08-18] MEDS: diazePAM 5 MG TABLET PO SCH (22:29)
[2023-08-18] MEDS: THIAMINE 100 MG TABLET PO SCH (22:29)
[2023-08-18] MEDS: MELATONIN 5 MG TABLETS PO SCH (22:54)
[2023-08-19] MEDS: PRENATAL VITAMINS W/ FOLIC ACID TABLET (FP) PO SCH (10:19)
[2023-08-19] MEDS: methaDONE HCL 10 MG TABLET PO SCH (10:54)
[2023-08-19 11:06] LABS: HEMATOCRIT 37.4 % (35.4-49); MCH 31.8 pg (25.7-33.7); MCHC 34.6 g/dl (32.0-35.9); MEAN CELL VOLUME 91.7 fl (80-96); MEAN PLT VOLUME 6.8 fl (7.5-11.1); PLATELET COUNT 208 10^3/uL (134-434); RBC 4.08 M/mm3 (4.00-5.60); RDW 12.6 % (11.9-15.9); WHITE BLOOD COUNT 3.5 K/mm3 (4.0-10.0)
[2023-08-19 11:57] LABS: CHLORIDE 102 mmol/L (98-107); POTASSIUM 4.2 mmol/L (3.5-5.1); SODIUM 138 mmol/L (136-145)
[2023-08-19 11:59] LABS: ALBUMIN 3.8 g/dl (3.4-5.0); ANION GAP 7 mmol/L (4-13); BLOOD UREA NITROGEN 17.6 mg/dL (7-18); CALCIUM 9.2 mg/dL (8.5-10.1); CO2 30 mmol/L (21-32); GLUCOSE,RANDOM 92 mg/dL (74-106)
[2023-08-19 12:02] LABS: SGPT/ALT 21 U/L (13-61)
[2023-08-19 12:03] LABS: CREATININE 0.8 mg/dL (0.55-1.3); SGOT/AST 22 U/L (15-37)
[2023-08-19 12:04] LABS: BILIRUBIN,TOTAL 0.4 mg/dL (0.2-1); TOT PROT 7.6 g/dl (6.4-8.2)
[2023-08-19 12:05] LABS: ALK PHOS 93 U/L (45-117)
[2023-08-19 13:10] LABS: HIV INTERPRETATION NEGATIVE (NEGATIVE)
[2023-08-20] MEDS: diazePAM 5 MG TABLET PO SCH (05:32)
[2023-08-20] MEDS: diazePAM 5 MG TABLET PO PRN (10:16)
[2023-08-20] MEDS: NICOTINE POLACRILEX 4 MG GUM BUC PRN (22:30)
[2023-08-21] MEDS: diazePAM 5 MG TABLET PO SCH (05:13)
[2023-08-21] MEDS: METHOCARBAMOL 500 MG TABLET PO PRN (09:58)
[2023-08-21] MEDS: hydrOXYzine PAMOATE 25 MG CAPSULE (FP) PO PRN (09:58)
[2023-08-21 17:03] VITALS: RESP 16
[2023-08-22] MEDS: diazePAM 5 MG TABLET PO ONE (05:25)
[2023-08-22 08:37] VITALS: BP 104/61; PULSE 81; TEMP 97.7
== END 2023-08-22 10:10 | disposition other institution (70) | DRG 773 ==
LOC: YASAS 16:38 → Y6N 20:07
PROVIDERS: ADMIT Allergy & Immunology; ATTEND Allergy & Immunology
PROC: HZ2ZZZZ Detoxification Services for Substance Abuse Treatment (ICD-10-PCS; principal; 2023-08-18)
DX: F13.230 Sedative, hypnotic or anxiolytic dependence with withdrawal, uncomplicated (principal); F11.20 Opioid dependence, uncomplicated; F14.20 Cocaine dependence, uncomplicated; F15.10 Other stimulant abuse, uncomplicated; F17.210 Nicotine dependence, cigarettes, uncomplicated; F90.9 Attention-deficit hyperactivity disorder, unspecified type; Z86.59 Personal history of other mental and behavioral disorders; Z56.0 Unemployment, unspecified; Z59.01 Sheltered homelessness
CPT/HCPCS: 36415; 80053; 80305; 80307; 85027; 86780; 86803; 87389; 93005; 93010